=== PATIENT | female | born 1965 | race Caucasian/White ===

== ENCOUNTER → 2019-03-27 | Outpatient (CLI) | payer OTHER ==
--- NOTE | 2019-03-27 09:32 | RAD ---
EXAM DESCRIPTION: Hand,Left 3 Views CLINICAL HISTORY: M79.641, M79.642 COMPARISON: None. TECHNIQUE: 3 views left FINDINGS: Mild degenerative changes are observed in the distal interphalangeal joint of the fifth digit. No fracturing is detected. 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 The exam is otherwise unremarkable. Electronically signed by: Felix Watson MD 03/27/2019 9:30 AM CDT
--- NOTE | 2019-03-27 09:34 | RAD ---
EXAM DESCRIPTION: Hand,Right 3 Views CLINICAL HISTORY: M79.641, M79.642 COMPARISON: None. TECHNIQUE: 3 views right FINDINGS: Mild degenerative changes are observed in the distal interphalangeal joint of the second digit. No fracturing is detected. IMPRESSION: Minimal degenerative changes observed in the right hand. Electronically signed by: Felix Watson MD 03/27/2019 9:31 AM CDT
== END ==
LOC: RAD 08:01
PROVIDERS: ATTEND Orthopaedic Surgery
DX: M19.041 Primary osteoarthritis, right hand (principal); M19.042 Primary osteoarthritis, left hand

== ENCOUNTER → 2019-04-12 | Outpatient (CLI) | payer OTHER | LOC: LAB.O 17:03 | PROVIDERS: ATTEND Orthopaedic Surgery | DX: Z01.818 Encounter for other preprocedural examination (principal) ==

== ENCOUNTER 2019-04-25 05:22 | Day surgery (SDC) | payer OTHER ==
--- NOTE | 2019-04-24 11:50 | HP ---
CHIEF COMPLAINT: Bilateral hand numbness, right greater than left. HISTORY OF PRESENT ILLNESS: Ms. Quinteros is a 53-year-old female who has had numbness in the hand going on for several years. It has now been going on on a continual basis. Because of the nature of the issues as well as the duration, she has requested operative intervention. After discussing the risks, benefits and alternatives to operative therapy, she has given informed consent for carpal tunnel release PAST SURGICAL HISTORY: None. MEDICATIONS: 1. Zyrtec. PAIN CONTRACT: None. ALLERGIES: NO KNOWN DRUG ALLERGIES. CODE STATUS: Full code. IMMUNIZATIONS: Up to date. SOCIAL HISTORY: The patient does not smoke or use any illicit drugs. She does drink on occasion. FAMILY HISTORY: None pertinent to today's complaint. REVIEW OF SYSTEMS: Negative except as indicated in the History of Present Illness. PHYSICAL EXAMINATION: VITAL SIGNS: Blood pressure 139/81. Pulse 75. Height 5'4". Weight 180 pounds. MENTAL STATUS: The patient is awake, alert, and is able to give a good history and participate in the physical. The patient is oriented to person, place and time. SKIN: Normal tone and turgor. MUSCULOSKELETAL: She has some minor thenar atrophy on the right relative to the left. Bilaterally, she has full toe former stitchdowns strength. There is no deformity other than the thenar atrophy. Both hands are warm and well perfused. Carpal compression test on the right is equivocal secondary to current symptoms. She has positive carpal compression test on the left. The symptoms are present as stated on the first, second and third digits on the right as well as the radial border of the left. ASSESSMENT: 1. Carpal tunnel syndrome. PLAN: The plan at this point is for carpal tunnel release. We have discussed the risks, benefits, and alternatives to that and the patient has given informed consent. #[id number] [facility]
[2019-04-25] MEDS ORDERED: SODIUM CHL 0.9% 100ML MINI-BAG 100 ML IVPB ONE (06:08)
[2019-04-25] MEDS ORDERED: LACTATED RINGERS 1,000 ML ONE (06:08)
[2019-04-25] MEDS ORDERED: ceFAZolin SODIUM 1 GM VIAL ONE ×2 (06:09→09:57)
[2019-04-25] MEDS ORDERED: fentaNYL CITRATE INJ 50 MCG/ML AMP ONE (09:53)
[2019-04-25] MEDS ORDERED: MIDAZOLAM INJ 2 MG/2 ML VIAL ONE (09:53)
[2019-04-25] MEDS ORDERED: LIDOCAINE 1% 50 ML VIAL INJ ONE (09:56)
[2019-04-25] MEDS ORDERED: BUPIVACAINE 0.25% INJ 30 ML VIAL INJ ONE (09:56)
[2019-04-25] MEDS ORDERED: VANCOMYCIN HCL INJ 1,000 MG VIAL IVPB ONE (09:57)
[2019-04-25] MEDS ORDERED: PROPOFOL 200 MG/20 ML VIAL IV ONE (10:00)
[2019-04-25] MEDS ORDERED: LIDOCAINE 1% 10 ML VIAL INJ ONE (10:00)
[2019-04-25 11:48] VITALS: BP 138/81; TEMP 98.5; O2SAT 100
--- NOTE | 2019-04-27 07:53 | OP ---
DATE OF PROCEDURE: 04/25/19 PREOPERATIVE DIAGNOSIS: 1. Carpal tunnel syndrome. POSTOPERATIVE DIAGNOSIS: 1. Carpal tunnel syndrome. PROCEDURE: 1. Carpal tunnel release. SURGEON: Jaime Long MD. MEDICAL BILLING ASSISTANT: David Rosario CST, SILVANO. ANESTHESIA: Local with sedation. COMPLICATIONS: None. FINDINGS: Compression of the median nerve across the carpal tunnel and thickening of the transverse carpal ligament. INDICATION: Ms. Quinteros has a history of carpal tunnel syndrome which has been going on for quite some time and she currently has symptoms at rest on the right. She additionally has symptoms on the left, but they are not as severe. Because of her ongoing symptoms and the severity, she has requested operative intervention. After discussing the risks, benefits and alternatives to that, the patient has given informed consent for carpal tunnel release. PROCEDURE: The patient was brought to the Operating Room and placed in the supine position. Sedation was administered and local anesthetic was injected into the operative area under sterile conditions. After the injection of anesthetic, the arm was sterilely prepped and draped. A longitudinal incision was made directly overlying the transverse carpal ligament and blunt dissection was carried down to the ligament. The transverse carpal ligament was sharply transected along its length and a [place] elevator was used to ensure complete release of the ligament. Once release had been confirmed, the wound was thoroughly irrigated and the wound was closed with Nylon suture. A sterile dressing was placed and the patient was taken to the Day Surgery Unit. POSTOPERATIVE PLAN: The patient has been encouraged to do range of motion of the digits and will followup with us in two days. #[id number] [facility]
== END 2019-04-25 11:43 | disposition home or self-care (01) ==
LOC: AMB 05:22
PROVIDERS: ATTEND Orthopaedic Surgery
DX: G56.01 Carpal tunnel syndrome, right upper limb (principal)
CPT/HCPCS: 01810; 64721; 80307; 81025; J0690; J2250; J3010; J3370; J3490; J7050; J7120

== ENCOUNTER 2019-05-16 05:26 | Day surgery (SDC) | payer OTHER ==
--- NOTE | 2019-05-12 10:11 | HP ---
CHIEF COMPLAINT: Left hand numbness. HISTORY OF PRESENT ILLNESS: Amelia is a 53-year-old female with a history of numbness in both hands. She has undergone right carpal tunnel release and has requested left carpal tunnel release. Her symptoms are present on a daily basis, are causing dysfunction and she has not been able to get any relief with any conservative measures. To that end, she has requested operative intervention. After discussing the risks, benefits and alternatives to that, she has given informed consent. PAST SURGICAL HISTORY: 1. Carpal tunnel release. MEDICATIONS: 1. Zyrtec. PAIN CONTRACT: None. ALLERGIES: NO KNOWN DRUG ALLERGIES. CODE STATUS: Full code. IMMUNIZATIONS: Up to date. SOCIAL HISTORY: The patient does not smoke or use any illicit drugs. She does drink on occasion. FAMILY HISTORY: None pertinent to today's complaint. REVIEW OF SYSTEMS: Negative except as indicated in the History of Present Illness. PHYSICAL EXAMINATION: VITAL SIGNS: Blood pressure 157/95. Pulse 81. Height 5'4". Weight 175 pounds. MENTAL STATUS: The patient is awake, alert, and is able to give a good history and participate in the physical. The patient is oriented to person, place and time. SKIN: Normal tone and turgor. MUSCULOSKELETAL: She has no deformities and has minimal thenar atrophy. She has positive carpal compression test. She does have some additional numbness at rest. She has positive Tinel's. She has full centerpuncher strength with no deformity. She has full range of motion. There is no crepitus with range of motion. Sensation on the ulnar border of the hand is intact. ASSESSMENT: 1. Carpal tunnel syndrome. PLAN: The plan at this point is for carpal tunnel release. We have discussed the risks, benefits, and alternatives to that and the patient has given informed consent. #[id number] [facility]
[2019-05-16] MEDS ORDERED: ceFAZolin SODIUM 1 GM VIAL ONE (08:05)
[2019-05-16] MEDS ORDERED: VANCOMYCIN HCL INJ 1,000 MG VIAL IVPB ONE (08:05)
[2019-05-16] MEDS ORDERED: PROPOFOL 200 MG/20 ML VIAL IV ONE (10:00)
[2019-05-16] MEDS ORDERED: LIDOCAINE 1% 10 ML VIAL INJ ONE (10:00)
[2019-05-16] MEDS ORDERED: SODIUM CHL 0.9% 100ML MINI-BAG 100 ML IVPB ONE (10:22)
[2019-05-16] MEDS: LACTATED RINGERS 1,000 ML ONE (10:43)
[2019-05-16] MEDS ORDERED: fentaNYL CITRATE INJ 50 MCG/ML AMP ONE (11:34)
[2019-05-16] MEDS ORDERED: MIDAZOLAM INJ 2 MG/2 ML VIAL ONE (11:34)
[2019-05-16] MEDS: ceFAZolin SODIUM 1 GM VIAL ONE (11:50)
[2019-05-16] MEDS: BUPIVACAINE 0.25% INJ 30 ML VIAL INJ ONE (12:00)
[2019-05-16] MEDS: LIDOCAINE 1% 10 ML VIAL INJ ONE (12:00)
[2019-05-16 14:50] VITALS: BP 136/74; TEMP 97.8; O2SAT 98
--- NOTE | 2019-05-17 09:50 | OP ---
DATE OF PROCEDURE: 05/16/19 PREOPERATIVE DIAGNOSIS: 1. Carpal tunnel syndrome, left wrist. POSTOPERATIVE DIAGNOSIS: 1. Carpal tunnel syndrome, left wrist. PROCEDURE: 1. Carpal tunnel release. SURGEON: Jaime Long MD. NEWSPAPER DISTRIBUTOR SUPERVISOR: David Rosario CST, SA-C. ANESTHESIA: Local with sedation. COMPLICATIONS: None. FINDINGS: Thickened transverse carpal ligament. INDICATION: Ms. Quinteros has a history of symptoms consistent with carpal tunnel syndrome. She has undergone carpal tunnel release and is requesting left sided release. After discussing the risks, benefits and alternatives to operative therapy, the patient has given informed consent for carpal tunnel release. PROCEDURE: The patient was brought to the Operating Room and placed in the supine position. Sedation was administered and local anesthetic was injected into the operative area under sterile conditions. After the injection of anesthetic, the arm was sterilely prepped and draped. A longitudinal incision was made directly overlying the transverse carpal ligament and blunt dissection was carried down to the ligament. The transverse carpal ligament was sharply transected along its length and a [place] elevator was used to ensure complete release of the ligament. Once release had been confirmed, the wound was thoroughly irrigated and the wound was closed with Nylon suture. A sterile dressing was placed and the patient was taken to the Day Surgery Unit. POSTOPERATIVE PLAN: The patient has been encouraged to do range of motion of the digits and will followup with us in two days. #[id number] [facility]
== END 2019-05-16 13:15 | disposition home or self-care (01) ==
LOC: AMB 05:26
PROVIDERS: ATTEND Orthopaedic Surgery
DX: G56.02 Carpal tunnel syndrome, left upper limb (principal)
CPT/HCPCS: 01810; 64721; 80307; 87070; J0690; J2250; J3010; J3370; J3490; J7050; J7120